=== PATIENT | female | born 1965 | race Caucasian/White ===

== ENCOUNTER 2020-09-02 00:50 | Emergency (ER) | payer MEDICAID ==
[~2020-09-02] VITALS: Ht 165.1 cm; Wt 125.6 kg
[~2020-09-02 00:50] MED LIST: CIPRO PO
[2020-09-02 00:59] VITALS: Ht 165.1 cm; Wt 125.6 kg
[2020-09-02 03:18] VITALS: BP 124/87
== END 2020-09-02 03:18 | disposition home or self-care (01) ==
LOC: ED 00:50
DX: H61.21 Impacted cerumen, right ear (principal); N39.0 Urinary tract infection, site not specified; E11.9 Type 2 diabetes mellitus without complications; J45.909 Unspecified asthma, uncomplicated